=== PATIENT | male | born 1980 | race Two or more races ===

== ENCOUNTER 2024-06-21 15:37 | Emergency (ER) | payer SELFPAY ==
[2024-06-21 16:42] LABS: STREP A BY PCR NOT DETECTED (NOT DETECT)
[2024-06-21] MEDS: Sodium Chloride 0.9% 1,000 ML IV ONE (16:43)
[2024-06-21 16:49] LABS: CORONAVIRUS COVID-19 NAA NEGATIVE (NEGATIVE); INFLUENZA A NAA POSITIVE (NEGATIVE); RESPIRATORY SYNCYTIAL VIR NAA NEGATIVE (NEGATIVE)
[2024-06-21] MEDS: Metoclopramide 10 MG/2 ML SDV IVPUSH ONE (16:54)
[2024-06-21 17:11] LABS: BASOPHILS PERCENT AUTO 0.3 % (0.0-1.0); EOSINOPHILS PERCENT AUTO 0.3 % (0.0-6.0); HEMATOCRIT 40.7 % (42.0-52.0); IMMATURE GRAN ABSOLUTE AUTO 0.03 K/mm3 (0.00-0.05); IMMATURE GRAN PERCENT AUTO 0.3 % (0.0-0.4); LYMPHOCYTES ABSOLUTE AUTO 1.2 K/mm3 (1.0-4.8); MEAN CORPUSCULAR HEMOGLOBIN 29.7 pg (28.0-32.0); MEAN CORPUSCULAR HGB CONC 34.4 g/dl (32.0-36.0); MEAN CORPUSCULAR VOLUME 86.4 fl (83.0-99.0); MEAN PLATELET VOLUME 10.6 fl (9.4-12.4); MONOCYTES ABSOLUTE AUTO 1.8 K/mm3 (0.0-0.8); MONOCYTES PERCENT AUTO 16.9 % (0.0-8.0); NEUTROPHILS ABSOLUTE AUTO 7.6 K/mm3 (1.8-7.7); NEUTROPHILS PERCENT AUTO 71.2 % (41.0-71.0); PLATELET COUNT,PLT 142 K/mm3 (150-400); RED BLOOD CELL COUNT 4.71 M/mm3 (4.52-5.90); WHITE BLOOD CELL COUNT,WBC 10.68 K/mm3 (3.9-11.3)
[2024-06-21 17:24] LABS: A/G RATIO 0.9 (1-2); ALBUMIN 3.7 g/dl (3.4-5.0); BILIRUBIN TOTAL 1.2 mg/dL (0.2-1.0); CALCIUM 8.5 mg/dL (8.5-10.1); EST CRCL DRUG DOSING (CG) 109.6 mL/min
[2024-06-21] MEDS: Ketorolac 30 MG/ML SDV IVPUSH ONE (17:39)
[2024-06-21] MEDS: Oseltamivir 75 MG Cap PO ONE (17:41)
[2024-06-21 18:08] LABS: SLIDE REVIEW ABNORMAL SMEAR
== END 2024-06-21 18:16 | disposition home or self-care (01) ==
LOC: JD.ED 15:37
DX: J10.1 Influenza due to other identified influenza virus with other respiratory manifestations (principal); E87.1 Hypo-osmolality and hyponatremia; E80.7 Disorder of bilirubin metabolism, unspecified; I10 Essential (primary) hypertension; E11.9 Type 2 diabetes mellitus without complications; E66.9 Obesity, unspecified; Z68.34 Body mass index [BMI] 34.0-34.9, adult; Z86.16 Personal history of COVID-19; Z79.899 Other long term (current) drug therapy; Z79.891 Long term (current) use of opiate analgesic; Z79.4 Long term (current) use of insulin
CPT/HCPCS: 0241U; 36415; 80053; 85025; 87651; 96361; 96374; 96375; 99284; A9270; J1885; J2765; J7030